=== PATIENT | female | born 1980 | race American Indian/Alaskan Native ===

== ENCOUNTER → 2018-04-15 11:23 | Outpatient (CLI) | payer MEDICAID, OTHER, SELFPAY ==
[2018-04-15 12:43] LABS: C-Reactive Protein Quant < 0.5 mg/dL (<1.0); Rheumatoid Factor < 8.6 IU/mL (<12.0)
[2018-04-16 11:49] LABS: CCP Antibody (IgG) < 16 Units (< 20)
[2018-04-17 20:48] LABS: ANA Pattern Speckled; ANA Screen, IFA Positive (Negative); ANA Titer 1:40 titer (<1:40)
== END ==
PROVIDERS: Family Provider Family Medicine; PCP Family Medicine; Visit Provider Family Medicine
DX: M13.0 Polyarthritis, unspecified (principal)
CPT/HCPCS: 36415; 83516; 86038; 86140; 86430

== ENCOUNTER → 2018-04-21 08:18 | Outpatient (CLI) | payer MEDICAID, OTHER, SELFPAY ==
--- NOTE | 2018-04-21 | DI.US.S_ITS ---
PROCEDURE: US ABDOMEN COMPLETE INDICATIONS: RUQ PAIN TECHNIQUE: Real-time scanning was performed of the abdominal and retroperitoneal organs, with image documentation. COMPARISON: [facility], US, PELVIC COMPLETE, 01/14/2017, 8:43. FINDINGS: Liver: Liver is normal in size and homogeneous in echotexture. Gallbladder: No gallstones identified. Normal gallbladder wall. No pericholecystic fluid. Negative sonographic King sign. Biliary ducts: Intrahepatic bile ducts are non-dilated. Extrahepatic bile duct caliber measures 5.0 mm. Normal is 6-7 mm or less in diameter, or 10 mm or less post-cholecystectomy. Pancreas: Visualized portions of the pancreas are sonographically normal. Spleen: Spleen is normal in size and homogeneous in echotexture. Kidneys: Kidneys are normal in size and echotexture. Right kidney measures 11.4 cm long; left kidney measures 12.2 cm long. 2 nonobstructing superior to mid right renal stone seen the largest measuring 8 mm.. No solid masses. Aorta: Visualized aorta is normal in caliber at less than 3 cm. Iliacs: Proximal common iliac arteries are normal in caliber at less than 2.5 cm. IVC: Intrahepatic inferior vena cava is patent. Miscellaneous: No free abdominal fluid. IMPRESSION: 1. 2 subcentimeter nonobstructing right renal stones otherwise no source for right upper quadrant pain identified. Dictated by: Getachew Lofton [facility] Interpreted: Gibson Garcia MD on 04/21/2018 at 10:03 Approved by: Gibson Garcia M.D. on 04/21/2018 at 11:17
== END ==
PROVIDERS: PCP Family Medicine; Visit Provider Family Medicine
DX: R10.11 Right upper quadrant pain (principal); N20.0 Calculus of kidney
CPT/HCPCS: 76700

== ENCOUNTER → 2018-05-20 10:06 | Outpatient (CLI) | payer MEDICAID, OTHER, SELFPAY ==
--- NOTE | 2018-05-20 | DI.CT.S_ITS ---
PROCEDURE: CT ABDOMEN PELVIS WO CON INDICATIONS: Bilateral upper flank pain TECHNIQUE: Noncontrast 5 mm thick sections acquired from the diaphragms to the symphysis. 5 mm thick coronal and sagittal reformats were then performed. For radiation dose reduction, the following was used: automated exposure control, adjustment of mA and/or kV according to patient size. COMPARISON: [facility], , US ABDOMEN COMPLETE, 04/21/2018, 8:46. FINDINGS: Image quality: Excellent. Lung bases: Lung bases are clear. Heart size is normal. Urinary system: Both kidneys are normal in size. Multiple right renal stones are noted ranging in size from 1-6 mm. 2 mm nonobstructing stone within the midpole of the left kidney. No hydronephrosis or perinephric fat stranding. Both ureters appear non-dilated throughout their expected courses. Bladder wall thickness is normal; no calcified bladder stones. Other solid organs: Liver is normal in size. Gallbladder is within normal limits. Pancreas is normal in contours. Spleen is normal in size. No adrenal nodules. Peritoneum and bowel: Unenhanced bowel loops demonstrate normal wall thickness and caliber. A few scattered colonic diverticuli are noted without evidence of diverticulitis. No free fluid or air. The appendix is normal. Nodes and vessels: No retroperitoneal or mesenteric adenopathy by size criteria. Aorta and inferior vena cava are normal in caliber. Abdominal wall: Small fat-containing periumbilical hernia is noted. Pelvis: No free pelvic fluid. No inguinal hernias or adenopathy. Intrauterine device noted. Bones: No suspicious bony lesions. No vertebral body compression fractures. IMPRESSION: 1. Multiple bilateral nonobstructing renal stones. 2. No hydronephrosis. 3. Colonic diverticulosis without evidence of diverticulitis. 4. No free fluid or free air. 5. No dilated loops of bowel. Dictated by: Shonda Leger MD, PhD on 05/20/2018 at 15:05 Approved by: Shonda Leger MD, PhD on 05/20/2018 at 15:10
== END ==
PROVIDERS: Family Provider Family Medicine; PCP Family Medicine; Visit Provider Family Medicine
DX: R10.12 Left upper quadrant pain (principal); R10.11 Right upper quadrant pain; M54.6 Pain in thoracic spine; N20.0 Calculus of kidney; K42.9 Umbilical hernia without obstruction or gangrene; K57.90 Diverticulosis of intestine, part unspecified, without perforation or abscess without bleeding; Z97.5 Presence of (intrauterine) contraceptive device
CPT/HCPCS: 74176

== ENCOUNTER 2018-07-14 18:51 | Emergency (ER) | payer MEDICAID, OTHER, SELFPAY ==
[2018-07-14 18:55] VITALS: BP 142/87; PULSE 74; RESP 18; TEMP 36.5; O2SAT 98
--- NOTE | 2018-07-14 22:01 | DI.CT.S_ITS ---
PROCEDURE: CT HEAD/BRAIN WO CON INDICATIONS: worst headache TECHNIQUE: Noncontrast 4.5 mm thick angled axial sections acquired from the foramen magnum to the vertex, with coronal and sagittal reformats. For radiation dose reduction, the following was used: automated exposure control, adjustment of mA and/or kV according to patient size. COMPARISON: None. FINDINGS: Image quality: Limited by beam hardening artifact related to metallic ear piercings. CSF spaces: Basal cisterns are patent. No extra-axial fluid collections. Ventricles are normal in size and shape. Brain: No midline shift. No intracranial masses or hemorrhage. Sharp-white matter interface is normal. Skull and face: Calvarium and visualized facial bones are intact, without suspicious lesions. Sinuses: Visualized sinuses and mastoids are clear. IMPRESSION: No acute intracranial disease process within limitations related to beam hardening artifact. Dictated by: Shonda Leger MD, PhD on 07/15/2018 at 8:00 Approved by: Shonda Leger MD, PhD on 07/15/2018 at 8:02
[2018-07-14] MEDS: METOCLOPRAMIDE 10 MG/2 ML INJ IV (22:12)
[2018-07-14] MEDS: diphenhydrAMINE 50 MG/ML VIAL 25 MG IV (22:13)
[2018-07-14] MEDS: DEXAMETHASONE 10 MG/ML VIAL IV (22:14)
[2018-07-14] MEDS: KETOROLAC 60 MG/2 ML VIAL 10 MG IV (22:15)
[2018-07-14] MEDS: SODIUM CHLORIDE 0.9% 1,000 ML 1000 ML IV (22:16)
[2018-07-14 23:39] VITALS: BP 119/85; PULSE 70; RESP 16; TEMP 37.1; O2SAT 99
--- NOTE | 2018-07-15 02:55 | ED_ITS ---
HPI - Headache General Chief Complaint: Headache Stated Complaint: HEADACHE Time Seen by Provider: 07/14/18 20:41 Source: patient and family Mode of arrival: ambulatory Limitations: no limitations History of Present Illness HPI Narrative: 38-year-old femaleNonsmoker presents to the emergency department with gradually worsening headache for the past few days. She complains of left- sided headache which is worse with bright lights, loud noises and exertion. She has had nausea but no vomiting. She denies fever or chills. She has had no numbness, tingling or weakness. She denies neck pain or recent illness or injury. She admits to being under significant stress at home and is not sleeping much. MD Complaint: headache and migraine Onset (ago): day(s) Onset description: gradual Location: left Severity: severe Quality: aching, throbbing and different than previous headaches Relieving factors: dark room Exacerbating factors: exertion, light and noise Associated symptoms: nausea Treatments prior to arrival: none Related Data Allergies Allergy/AdvReac Type Severity Reaction Status Date / Time Sulfa (Sulfonamide Allergy Unknown Verified 07/14/18 22:16 Antibiotics) [SULFA (SULFONAMIDE ANTIBIOTICS)] Review of Systems Constitutional Denies chills, Denies fever(s), Reports headache(s), Denies lethargy and Denies weakness Eyes Denies change in vision, Denies eye discharge, Denies irritation and Denies loss of vision ENT Ears, Nose, Mouth, and Throat: Denies change in voice, Reports headache(s), Denies neck pain and Denies sore throat Cardiovascular Denies chest pain, Denies irregular heart rhythm, Denies lightheadedness, Denies palpitations, Denies dyspnea, Denies dyspnea on exertion and Denies orthopnea Respiratory Denies cough, Denies dyspnea, Denies dyspnea on exertion and Denies wheezing Gastrointestinal Gastrointestinal: Denies abdominal pain, Denies change in bowel habits, Denies diarrhea, Denies nausea and Denies vomiting Genitourinary Denies hematuria, Denies flank pain, Denies urinary incontinence and Denies urinary urgency Musculoskeletal Denies neck pain Integumentary/Breasts Denies pruritus, Denies erythema, Denies rash and Denies wounds Neurologic Denies confusion, Reports headache(s), Denies loss of vision and Denies weakness Psychiatric Denies anxiety, Denies confusion, Denies depression, Denies homicidal ideation and Denies suicidal ideation Endocrine Denies palpitations Hematologic/Lymphatic Denies easy bruising Allergic/Immunologic Denies wheezing PFSH Family History Father Hypertension Social History Smoking Status: Never smoker Family History Father Hypertension Social History Smoking Status: Never smoker Exam Narrative Exam Narrative: GENERAL: 38-year-old female obviously uncomfortable, sitting in a dark room with her bishop pulled up, her eyes covered. HEAD: Atraumatic. Normocephalic. No temporal or scalp tenderness. EYES: Pupils equal round and reactive. Extraocular motions intact. No scleral icterus. No injection or drainage. ENT: Nose without bleeding, purulent drainage or septal hematoma. Throat without erythema, tonsillar hypertrophy or exudate. Uvula midline. Airway patent. NECK: Trachea midline. No JVD or lymphadenopathy. Supple, nontender, no meningeal signs. CARDIOVASCULAR: Regular rate and rhythm without murmurs, gallops, or rubs. RESPIRATORY: Clear to auscultation. Breath sounds equal bilaterally. No wheezes , rales, or rhonchi. GASTROINTESTINAL: Abdomen soft, non-tender, nondistended. No hepato-splenomegaly , or palpable masses. No guarding. EXTREMITIES: No clubbing, cyanosis, or edema. No joint tenderness, effusion, or edema noted. BACK: Nontender without deformity or crepitance. No flank tenderness. NEURO: AOx3. SKIN: No rash or erythema. NIH Stroke Scale 1a. LOC: Patient is alert and keenly responsive (0) 1b. LOC Questions: Patient answers both LOC questions accurately (0) 1c. LOC Commands: Patient performs both tasks correctly (0) 2. Best Gaze: Normal (0) 3. Visual: No visual loss (0) 4. Facial palsy: Normal symmetrical movements (0) 5. Motor arm: No drift (0) 6. Motor leg: No drift (0) 7. Limb ataxia: Absent (0) 8. Sensory: Normal (0) 9. Best language: No aphasia; normal (0) 10. Dysarthria: Normal (0) 11. Extinction and inattention: No abnormality (0) NIHSS: 0 Initial Vital Signs Initial Vital Signs: Vital Signs Temperature 97.7 F 07/14/18 18:55 Pulse Rate 74 07/14/18 18:55 Respiratory Rate 18 07/14/18 18:55 Blood Pressure 142/87 H 07/14/18 18:55 Pulse Oximetry 98 07/14/18 18:55 Course Orders Ordered: ED Orders 07/14/18 22:01 CT head/brain wo con Stat Discontinued Medications Dexamethasone (Decadron) 10 mg IV NOW ONE Stop: 07/14/18 21:59 Last Admin: 07/14/18 22:14 Dose: 10 mg Diphenhydramine HCl (Benadryl) 25 mg IV NOW ONE Stop: 07/14/18 21:59 Last Admin: 07/14/18 22:13 Dose: 25 mg Sodium Chloride (Normal Saline 0.9%) 1,000 mls @ 1,000 mls/hr IV BOLUS ONE Stop: 07/14/18 22:57 Last Infusion: 07/14/18 23:16 Dose: 0 mls/hr Admin: 07/14/18 22:16 Dose: 1,000 mls/hr Ketorolac Tromethamine (Toradol) 10 mg IV NOW ONE Stop: 07/14/18 21:59 Last Admin: 07/14/18 22:15 Dose: 10 mg Metoclopramide HCl (Reglan) 10 mg IV NOW ONE Stop: 07/14/18 21:59 Last Admin: 07/14/18 22:12 Dose: 10 mg Reevaluation(s) Reevaluation #1: The patient has near complete resolution of symptoms after above-stated therapies and is requesting discharge Vital Signs - 8 hr 07/14/18 23:39 Temperature 98.7 F Pulse Rate 70 Respiratory Rate 16 Blood Pressure 119/85 Pulse Oximetry 99 MDM - Headache Differential Diagnosis Differential diagnosis: Likely migraine, tension headache, subarachnoid hemorrhage, headache and meningitis Medical Records Attestation: I reviewed the patient's medical records. Imaging Data CT scan - head: Radiologist's impression: NAP MDM Narrative Medical decision making narrative: Multiple etiologies for patient's symptoms considered including: [Migraine versus meningitis versus subarachnoid hemorrhage versus tension headache versus other] Patient's symptoms improved or duration of stay with above-stated therapies. Findings and discharge diagnosis discussed with patient/family followed by verbalization of understanding Return precautions discussed with patient/family whom verbalize understanding. Discharge Plan Departure Patient Disposition: Home Clinical Impression: Migraine Discharge Date/Time: 07/14/18 23:38 Interventions: ED Discharge Assessment Last Done: 07/14/18 23:39 Instructions: DI for Migraine Activity Restrictions/Additional Instructions: *You have been diagnosed with [ acute migraine headache ] *What to do: continue to take medications as previously directed *Follow up with your primary care provider in 2-3 days, call for an appointment. Let them know you were seen in the Emergency Department and that we ask that you be seen in follow up *Return to ER if you should have any new, worsening or concerning symptoms
== END 2018-07-14 23:38 | disposition home or self-care (01) ==
PROVIDERS: Emergency Provider Emergency Medicine; Family Provider Family Medicine; PCP Family Medicine
DX: G43.909 Migraine, unspecified, not intractable, without status migrainosus (principal)
CPT/HCPCS: 36591; 70450; 96361; 96374; 96375; 99283; 99284; J1100; J1200; J1885; J2765

== ENCOUNTER 2018-10-22 20:08 | Emergency (ER) | payer OTHER, MEDICAID, SELFPAY ==
[2018-10-22 20:25] VITALS: BP 128/93; PULSE 90; RESP 18; TEMP 36.7; O2SAT 97; BMI 27.4
--- NOTE | 2018-10-22 20:34 | DI.CT.S_ITS ---
PROCEDURE: CT ABDOMEN PELVIS W CON INDICATIONS: drank hydrgen peroxide-gas in portal system? per poison cont TECHNIQUE: After the administration of intravenous contrast, 5 mm thick sections acquired from the diaphragm to the symphysis. 5 mm coronal and sagittal reformats were acquired. For radiation dose reduction, the following was used: automated exposure control, adjustment of mA and/or kV according to patient size. COMPARISON: None. FINDINGS: Image quality: Excellent. ABDOMEN: Lung bases: Lung bases are clear. Heart size is normal. Solid organs: Liver is normal in size and enhancement. Gallbladder is within normal limits. Biliary system is non dilated. Pancreas enhances normally. Spleen is normal in size and enhancement. No adrenal nodules. Kidneys demonstrate normal size and enhancement, without hydronephrosis. 2-3 mm bilateral nonobstructing renal calculi are seen. Peritoneum and bowel: Bowel loops demonstrate normal wall thickness and caliber. No free fluid or air. The appendix is visualized and is within normal limits. Nodes and vessels: No retroperitoneal or mesenteric adenopathy by size criteria. Aorta and inferior vena cava are normal in size. Miscellaneous: Small periumbilical hernia is seen containing fat only. PELVIS: Genitourinary: Bladder wall thickness is normal. Intrauterine device is noted in its normal central endometrial location. Miscellaneous: No inguinal hernias or adenopathy. Bones: No suspicious bony lesions. No vertebral body compression fractures. IMPRESSION: 1. No acute inflammatory process within the abdomen or pelvis. No abnormal bowel wall thickening. No free fluid or free air. 2. Bilateral nonobstructing renal calculi. No hydronephrosis. 3. Intrauterine device is in its normal location. Dictated by: Gibson Garcia M.D. on 10/22/2018 at 22:09 Approved by: Gibson Garcia M.D. on 10/22/2018 at 22:11
--- NOTE | 2018-10-22 20:36 | ED.OVERDOSE ---
HPI - Overdose General Chief Complaint: Toxicology Problem Stated Complaint: DRANK ALOT OF HYDROGEN PEROXIDE Time Seen by Provider: 10/22/18 20:22 History of Present Illness HPI Narrative: Patient is a very nice 38-year-old female presenting with possible ingestion of hydrogen peroxide. She has a special needs child at home she has some hydrogen peroxide out from cleaning of the wound. She drinks about 500 mL of water from her water bottle and then started feeling her throat is burning instantly vomited. After interrogation of her children she found that 1 of them did pour some hydrogen peroxide 3% into her water bottle. It is unclear how much was port in. Poison Control was contacted prior to arrival who recommended she come to the ED for evaluation. He has no complaints at this time. MD complaint: accidental overdose Onset (ago): minute(s) Related Data Allergies Allergy/AdvReac Type Severity Reaction Status Date / Time Sulfa (Sulfonamide Allergy Unknown Verified 07/14/18 22:16 Antibiotics) [SULFA (SULFONAMIDE ANTIBIOTICS)] Review of Systems Review of Systems GENERAL: Denies chills, fatigue, malaise, fever, sweats, travel HEENT: Denies sinus pain, ear pain, sore throat, difficulty swallowing, neck pain RESPIRATORY: Denies dyspnea, cough, wheezing, hemoptysis, sputum. CARDIOVASCULAR: Denies chest pain, palpitations, orthopnea, edema GASTROINTESTINAL: Denies nausea, vomiting, abdominal pain, diarrhea, constipation, melena. : Denies dysuria, frequency, incontinence, hematuria, urinary retention, flank pain. MUSCULOSKELETAL: Denies weakness, joint pain, or bony pain SKIN: No rash, no erythema, no pruritus NEUROLOGIC: Denies weakness, dizziness, headache, numbness, change in speech, confusion PSYCHIATRIC: No concerning psychosocial issues. 12 point review of systems is negative except for those stated above and HPI PFSH Medical History Patient denies significant medical history (Acute) Family History Father Hypertension Social History Smoking Status: Never smoker Family History Father Hypertension Social History Smoking Status: Never smoker Exam Initial Vital Signs Initial Vital Signs: Vital Signs Temperature 98.1 F 10/22/18 20:25 Pulse Rate 90 10/22/18 20:25 Respiratory Rate 18 10/22/18 20:25 Blood Pressure 128/93 H 10/22/18 20:25 Pulse Oximetry 97 10/22/18 20:25 GENERAL: Well-appearing, well-nourished and in no acute distress. HEENT: Head atraumatic,EOMI, pupils reactive, face symmetric, moist mucous membranes CARDIOVASCULAR: Regular rate and rhythm without murmurs, rubs or gallops. RESPIRATORY: Breath sounds equal bilaterally, no wheezes rales or rhonchi. ABDOMEN: Soft, nontender. Normoactive bowel sounds all 4 quadrants. No guarding or rebound. EXTREMITIES: Normal range of motion, no clubbing or edema. Neurovascularly intact NEUROLOGICAL: Alert and oriented x4.Normal gait and speech. Cranial nerves II through XII grossly intact. SKIN: Warm, dry, no laceration, no petechiae, no rashes or lesions. Course Orders Ordered: ED Orders 10/22/18 20:34 CT abdomen pelvis w con Stat 10/22/18 20:35 Acetaminophen Stat Complete Blood Count AUTO DIFF Stat Comprehensive Metabolic Panel Stat Ethanol (ETOH) Stat Lipase Stat Salicylate Stat 10/22/18 20:40 Urine Drug Screen, Rapid Stat Discontinued Medications Sodium Chloride (Normal Saline 0.9%) 1,000 mls @ 1,000 mls/hr IV CONT TIAGO Last Infusion: 10/22/18 22:00 Dose: 1,000 mls/hr Admin: 10/22/18 21:00 Dose: 1,000 mls/hr Vital Signs - 8 hr 10/22/18 20:25 10/22/18 21:28 10/22/18 22:40 Temperature 98.1 F Pulse Rate 90 75 70 Respiratory Rate 18 15 18 Blood Pressure 128/93 H 130/80 Blood Pressure [Right Arm] 134/85 Pulse Oximetry 97 97 97 MDM - Overdose Lab Data Attestation: I reviewed the patient's lab results. Result diagrams: 10/22/18 20:35 10/22/18 20:35 Lab Results 10/22/18 10/22/18 10/22/18 Range/Units 20:35 20:35 20:40 WBC 6.8 (4.5-11.0) X10^3/uL RBC 4.85 (4.0-5.2) X10^6/uL Hgb 14.1 (12.0-16.0) g/dL Hct 43.4 (36-46) % MCV 89.6 (80-100) fL MCH 29.1 (26-34) PG MCHC 32.5 (30-36) % RDW 13.1 (11.6-14.8) % Plt Count 195 (150-400) X10^3/uL Neut % (Auto) 47.7 L (50-75) % Lymph % (Auto) 42.4 H (25-40) % Carlton % (Auto) 5.4 (3-14) % Eos % (Auto) 3.9 (2-4) % Baso % (Auto) 0.6 (0-2) % Neut # (Auto) 3300 (6370-6769) /uL Lymph # (Auto) 2900 (4003-8011) /uL Carlton # (Auto) 400 (0-900) /uL Eos # (Auto) 300 (0-450) /uL Baso # (Auto) 0 (0-100) /uL Sodium 139 (137-145) mmol/L Potassium 3.6 (3.4-5.1) mmol/L Chloride 104 (98-107) mmol/L Carbon Dioxide 23 (22-32) mmol/L BUN 16 (7-17) mg/dL Creatinine 0.80 (0.52-1.04) mg/dL Estimated GFR > 60.0 (>60) mL/min BUN/Creatinine Ratio 20.0 (6-22) Glucose 92 (70-100) mg/dL Calcium 9.3 (8.4-10.2) mg/dL Total Bilirubin 0.2 (0.2-1.3) mg/dL AST 16 (14-36) IU/L ALT 18 (9-52) IU/L Alkaline Phosphatase 38 (38-126) U/L Total Protein 8.1 (6.3-8.2) g/dL Albumin 4.7 (3.5-5.0) g/dL Globulin 3.4 (1.7-4.1) g/dL Albumin/Globulin Ratio 1.4 (1.0-2.8) Lipase 154 (23-300) U/L Salicylates < 1.0 (<20) mg/dL Urine Opiates Screen Positive H (Negative) Ur Oxycodone Screen Negative (Negative) Urine Methadone Screen Negative (Negative) Acetaminophen < 10 L (10-30) ug/mL Ur Barbiturates Screen Negative (Negative) U Tricyclic Antidepress Negative (Negative) Ur Phencyclidine Scrn Negative (Negative) Ur Amphetamines Screen Negative (Negative) U Methamphetamines Scrn Negative (Negative) Ur MDMA Scrn (Ecstasy) Negative (Negative) U Benzodiazepines Scrn Negative (Negative) Urine Cocaine Screen Negative (Negative) U Marijuana (THC) Screen Positive H (Negative) Ethyl Alcohol < 10 mg/dL Point of Care Testing Test Results Negative Imaging Data CT scan - abdomen: Radiologist's impression: PROCEDURE: CT ABDOMEN PELVIS W CON INDICATIONS: drank hydrgen peroxide-gas in portal system? per poison cont TECHNIQUE: After the administration of intravenous contrast, 5 mm thick sections acquired from the diaphragm to the symphysis. 5 mm coronal and sagittal reformats were acquired. For radiation dose reduction, the following was used: automated exposure control, adjustment of mA and/or kV according to patient size. COMPARISON: None. FINDINGS: Image quality: Excellent. ABDOMEN: Lung bases: Lung bases are clear. Heart size is normal. Solid organs: Liver is normal in size and enhancement. Gallbladder is within normal limits. Biliary system is non dilated. Pancreas enhances normally. Spleen is normal in size and enhancement. No adrenal nodules. Kidneys demonstrate normal size and enhancement, without hydronephrosis. 2-3 mm bilateral nonobstructing renal calculi are seen. Peritoneum and bowel: Bowel loops demonstrate normal wall thickness and caliber. No free fluid or air. The appendix is visualized and is within normal limits. Nodes and vessels: No retroperitoneal or mesenteric adenopathy by size criteria. Aorta and inferior vena cava are normal in size. Miscellaneous: Small periumbilical hernia is seen containing fat only. PELVIS: Genitourinary: Bladder wall thickness is normal. Intrauterine device is noted in its normal central endometrial location. Miscellaneous: No inguinal hernias or adenopathy. Bones: No suspicious bony lesions. No vertebral body compression fractures. IMPRESSION: 1. No acute inflammatory process within the abdomen or pelvis. No abnormal bowel wall thickening. No free fluid or free air. 2. Bilateral nonobstructing renal calculi. No hydronephrosis. 3. Intrauterine device is in its normal location. Dictated by: Gibson Garcia M.D. on 10/22/2018 at 22:09 [facility] Narrative Medical decision making narrative: Patient overall feeling better. I re-contacted poison Control no abnormality in the CT patient can go. Discharge Plan Departure Patient Disposition: Home Clinical Impression: Accidental overdose Qualifiers: Encounter type: initial encounter Qualified Code(s): T50.901A - Poisoning by unspecified drugs, medicaments and biological substances, accidental (unintentional), initial encounter Discharge Date/Time: 10/22/18 22:41 Interventions: ED Discharge Assessment Last Done: 10/22/18 22:40 Instructions: DI for Drug Overdose in Adults Activity Restrictions/Additional Instructions: *You have been diagnosed with accidental overdose *What to do: Poison Control has been contacted. CT blood work reassuring keep. all medications and cleaning supplies a [facility] from [facility] *Continue to take medications as directed *Follow up with your primary care provider in 2-3 days *Return to ER if you should have present since vomiting increased pain or any new, worsening or concerning symptoms Referrals: Tavon Wellington MD [Primary Care Provider] -
[2018-10-22 20:52] LABS: Add Manual Diff / Slide Review NO; Basophils Absolute Auto 0 /uL (0-100); Basophils Percent Auto 0.6 % (0-2); Eosinophils Absolute Auto 300 /uL (0-450); Eosinophils Percent Auto 3.9 % (2-4); Hematocrit 43.4 % (36-46); Hemoglobin 14.1 g/dL (12.0-16.0); Lymphocytes Absolute Auto 2900 /uL (1100-4500); Lymphocytes Percent Auto 42.4 % (25-40); Mean Corpuscular HGB Conc 32.5 % (30-36); Mean Corpuscular Hemoglobin 29.1 PG (26-34); Mean Corpuscular Volume 89.6 fL (80-100); Monocytes Absolute Auto 400 /uL (0-900); Monocytes Percent Auto 5.4 % (3-14); Neutrophils Absolute Auto 3300 /uL (1500-7000); Neutrophils Percent Auto 47.7 % (50-75); Platelet Count 195 X10^3/uL (150-400); Red Blood Cell Count 4.85 X10^6/uL (4.0-5.2); Red Cell Distribution Width 13.1 % (11.6-14.8); White Blood Cell Count 6.8 X10^3/uL (4.5-11.0)
[2018-10-22] MEDS: SODIUM CHLORIDE 0.9% 1,000 ML 1000 ML IV (21:00)
[2018-10-22 21:07] LABS: Acetaminophen < 10 ug/mL (10-30); Alanine Aminotransferase 18 IU/L (9-52); Albumin 4.7 g/dL (3.5-5.0); Albumin Globulin Ratio 1.4 (1.0-2.8); Alkaline Phosphatase 38 U/L (38-126); Aspartate Aminotransferase 16 IU/L (14-36); Bilirubin Total 0.2 mg/dL (0.2-1.3); Blood Urea Nitrogen 16 mg/dL (7-17); Calcium 9.3 mg/dL (8.4-10.2); Carbon Dioxide 23 mmol/L (22-32); Chloride 104 mmol/L (98-107); Estimated Glomerular Filt Rate > 60.0 mL/min (>60); Ethanol (ETOH) < 10 mg/dL; Globulin 3.4 g/dL (1.7-4.1); Glucose 92 mg/dL (70-100); HEMOLYSIS < 15 (0-50); Lipase 154 U/L (23-300); Potassium 3.6 mmol/L (3.4-5.1); Salicylate < 1.0 mg/dL (<20); Sodium 139 mmol/L (137-145); Total Protein 8.1 g/dL (6.3-8.2)
[2018-10-22 21:13] LABS: Urine Amphetamines Negative (Negative); Urine Barbiturates Negative (Negative); Urine Benzodiazepines Negative (Negative); Urine Cocaine Negative (Negative); Urine MDMA Negative (Negative); Urine Methadone Negative (Negative); Urine Methamphetamines Negative (Negative); Urine Morphine/Opi cutoff 2000 Positive (Negative); Urine Oxycodone Negative (Negative); Urine Phencyclidine Negative (Negative); Urine Tetrahydrocannabinol Positive (Negative); Urine Tricyclic Antidepressant Negative (Negative)
[2018-10-22 21:28] VITALS: BP 134/85; PULSE 75; RESP 15; O2SAT 97
--- NOTE | 2018-10-22 21:30 | PC.NURSE ---
Pt arrived back from CT, stating she sneezed and throat has itch post IV contrast. PT states only known allergy is to Sulfa. PT denies throat tightness or sob and is speaking in full sentences. Provider aware, offered medication to pt and pt declined stating its getting better.
[2018-10-22 22:40] VITALS: BP 130/80; PULSE 70; RESP 18; O2SAT 97
--- NOTE | 2018-10-22 23:03 | PC.NURSE ---
PT states may have accidentally drank hydrogen peroxide, pt thinks her special needs child may have put hydrogen peroxide 3% in her water bottle, pt drank approx 500ml of water then throat started to burn and she vomited. Pt called poison control and was told to come to ER for eval. Pt denies n/v, difficulty breathing, pain or any complaints upon arrival. Pt appears in no acute distress.
== END 2018-10-22 22:41 | disposition home or self-care (01) ==
PROVIDERS: Emergency Provider Emergency Medicine; Family Provider Family Medicine; PCP Family Medicine
DX: T50.901A Poisoning by unspecified drugs, medicaments and biological substances, accidental (unintentional), initial encounter (principal)
CPT/HCPCS: 36591; 74177; 80053; 80305; 80320; 80329; 81025; 83690; 85025; 96360; 99283; 99284; G0480; Q9967

== ENCOUNTER → 2019-06-14 15:13 | Outpatient (CLI) | payer OTHER, SELFPAY | PROVIDERS: Family Provider Family Medicine; PCP Family Medicine; Visit Provider Physician Assistant | DX: R39.15 Urgency of urination (principal) | CPT/HCPCS: 87086 ==

== ENCOUNTER → 2019-07-08 12:57 | Outpatient (CLI) | payer OTHER, SELFPAY ==
--- NOTE | 2019-07-08 | DI.MG.S_ITS ---
BILATERAL DIGITAL DIAGNOSTIC MAMMOGRAM 3D/2D: 07/08/2019 CLINICAL: Baseline exam. Bilateral breast pain. Baseline exam. No prior exams were available for comparison. The tissue of both breasts is extremely dense, which lowers the sensitivity of mammography. No significant masses, calcifications, or other findings are seen in either breast. No significant finding in the region of breast pain in the upper outer breasts bilaterally. IMPRESSION: INCOMPLETE: NEEDS ADDITIONAL IMAGING EVALUATION No significant masses, calcifications, or other findings are seen in either breast. Ultrasound of the upper outer breasts is recommended. This exam was interpreted at Station ID: [id number]. NOTE: For mammograms, a report in lay terms will be sent to the patient. Approximately 15% of breast malignancies will not be visualized mammographically. In the management of a palpable breast mass, a negative mammogram must not discourage biopsy of a clinically suspicious lesion. Electronically Signed By: Adolfo Mathews M.D. slc/:07/08/2019 14:53:36 ACR BI-RADS Category 0: Incomplete [id number]
--- NOTE | 2019-07-08 | DI.US.S_ITS ---
LIMITED ULTRASOUND OF RIGHT BREAST AND AXILLA: 07/08/2019 CLINICAL: Right breast pain upper outer quadrant. Comparison is made to exam dated: 07/08/2019 [facility]. Real-time ultrasound of the right breast 9-12 o'clock, and axilla regions was performed. Sharp scale images of the real-time examination were reviewed. No significant abnormalities were seen sonographically in the right breast in the region of focal pain or the right axilla. IMPRESSION: NEGATIVE There is no sonographic evidence of malignancy. Return to annual mammogram screening schedule is recommended. This exam was interpreted at Station ID: [id number]. Electronically Signed By: Adolfo Mathews M.D. slc/:07/08/2019 16:35:26 letter sent: Normal Exam Ultrasound BI-RADS: 1 Negative
--- NOTE | 2019-07-08 | DI.US.S_ITS ---
LIMITED ULTRASOUND OF LEFT BREAST AND AXILLA: 07/08/2019 CLINICAL: Left breast pain upper outer quadrant with possible cysts seen on mammogram. Comparison is made to exam dated: 07/08/2019 [facility]. Real-time ultrasound of the left breast 12-3 o'clock, and axilla regions was performed. Sharp scale images of the real-time examination were reviewed. No significant abnormality in the upper outer left breast in the region of pain. There is a benign 0.5 cm x 0.7 cm x 0.3 cm oval cyst in the left breast at 12 o'clock middle depth 6 cm from the nipple. This oval cyst is anechoic with a well-defined boundary. Color flow imaging demonstrates that there is no vascularity present. There also is a benign 0.4 cm x 0.2 cm x 0.6 cm oval cyst in the left breast at 1 o'clock middle depth 6 cm from the nipple. This oval cyst is anechoic with a well-defined boundary. Color flow imaging demonstrates that there is no vascularity present. No significant abnormalities were seen sonographically in the left axilla. IMPRESSION: BENIGN There is no sonographic evidence of malignancy. No significant abnormality in the upper outer left breast in the region of pain. Simple subcentimer cysts in the left breast are benign. Return to annual mammogram screening schedule is recommended. This exam was interpreted at Station ID: [id number]. Electronically Signed By: Adolfo Mathews M.D. [facility]/:07/08/2019 16:42:28 letter sent: Normal Exam Ultrasound BI-RADS: 2 Benign
== END ==
PROVIDERS: Family Provider Family Medicine; PCP Family Medicine; Visit Provider Family Medicine
DX: R92.8 Other abnormal and inconclusive findings on diagnostic imaging of breast (principal); N64.4 Mastodynia; N60.02 Solitary cyst of left breast
CPT/HCPCS: 76642; 77066; G0279

== ENCOUNTER 2022-03-08 21:49 | Emergency (ER) | payer OTHER, SELFPAY ==
[2022-03-08] VITALS (20 sets, daily range): BP systolic 79–90; BP diastolic 45–54; PULSE 61–74; RESP 16–27; TEMP 36.3; O2SAT 96–99; BMI 28.8
--- NOTE | 2022-03-08 22:01 | DI.RAD.S_ITS ---
PROCEDURE: XR CHEST 1V INDICATIONS: chest pain TECHNIQUE: One view of the chest was acquired. COMPARISON: None. FINDINGS: Surgical changes and devices: None. Lungs and pleura: Lungs are clear. No pleural effusions or pneumothorax. Mediastinum: Mediastinal contours appear normal. Heart size is normal. Bones and chest wall: No suspicious bony lesions. Overlying soft tissues appear unremarkable. IMPRESSION: 1. No acute cardiopulmonary disease. Dictated by: Harpreet Torres M.D. on 03/08/2022 at 23:18 Approved by: Harpreet Torres M.D. on 03/08/2022 at 23:19
[2022-03-08 22:35] LABS: Add Manual Diff / Slide Review NO; Basophils Absolute Auto 0 /uL (0-100); Basophils Percent Auto 0.4 % (0-2); Eosinophils Absolute Auto 200 /uL (0-450); Eosinophils Percent Auto 2.4 % (2-4); Hematocrit 35.9 % (36-46); Hemoglobin 12.5 g/dL (12.0-16.0); Lymphocytes Absolute Auto 3300 /uL (1100-4500); Lymphocytes Percent Auto 48.9 % (25-40); Mean Corpuscular HGB Conc 34.7 % (30-36); Mean Corpuscular Hemoglobin 30.2 PG (26-34); Mean Corpuscular Volume 86.9 fL (80-100); Monocytes Absolute Auto 400 /uL (0-900); Monocytes Percent Auto 5.6 % (3-14); Neutrophils Absolute Auto 2900 /uL (1500-7000); Neutrophils Percent Auto 42.7 % (50-75); Platelet Count 246 X10^3/uL (150-400); Red Blood Cell Count 4.13 X10^6/uL (4.0-5.2); Red Cell Distribution Width 13.2 % (11.6-14.8); White Blood Cell Count 6.9 X10^3/uL (4.5-11.0)
[2022-03-08] MEDS: SODIUM CHLORIDE 0.9% 1,000 ML 1000 ML IV ×2 (22:35→23:06)
[2022-03-08 22:40] LABS: Alanine Aminotransferase 14 IU/L (<35); Albumin 3.8 g/dL (3.5-5.0); Albumin Globulin Ratio 1.4 (1.0-2.8); Alkaline Phosphatase 30 U/L (38-126); Aspartate Aminotransferase 17 IU/L (14-36); BUN Creatinine Ratio 23.8 (6-22); Blood Urea Nitrogen 25 mg/dL (7-17); Calcium 8.5 mg/dL (8.4-10.2); Carbon Dioxide 25 mmol/L (22-32); Chloride 102 mmol/L (98-107); Creatine Kinase 66 U/L (30-135); Estimated Glomerular Filt Rate > 60 mL/min (>60); Globulin 2.8 g/dL (1.7-4.1); Glucose 125 mg/dL (70-100); HEMOLYSIS < 15 (0-50); Lipase 184 U/L (23-300); Magnesium 1.9 mg/dL (1.6-2.3); Potassium 3.6 mmol/L (3.4-5.1); Sodium 135 mmol/L (137-145); Total Protein 6.6 g/dL (6.3-8.2)
--- NOTE | 2022-03-08 22:46 | ED_ITS ---
HPI - Syncope General Chief Complaint: Syncope Stated Complaint: Fainted /head injury Time Seen by Provider: 03/08/22 22:28 Source: patient and family Mode of arrival: Wheelchair Limitations: no limitations History of Present Illness HPI narrative: Patient is a 41-year-old female who has a history of high blood pressure intermittently takes combo lisinopril and hydrochlorothiazide passed out today. She states that she started changing her diet and started going to the gym more regularly especially this week. Today she to sleep got up in her heard her crash in the kitchen. She actually has off small abrasion on the right side of her head. He denies numbness tingling or weakness. She said immediately after the event she got very hot and sweaty. Blood pressure is noted to be quite low in the 80s currently. She denies any fever or chills. He has no neck pain no nausea no vomiting. Related Data Allergies Allergy/AdvReac Type Severity Reaction Status Date / Time Sulfa (Sulfonamide Allergy Unknown Verified 06/14/19 15:04 Antibiotics) [SULFA (SULFONAMIDE ANTIBIOTICS)] Review of Systems Review of Systems Narrative: GENERAL: Denies chills, fatigue, malaise, fever, sweats, travel HEENT: Denies sinus pain, ear pain, sore throat, difficulty swallowing, neck pain RESPIRATORY: Denies dyspnea, cough, wheezing, hemoptysis, sputum. CARDIOVASCULAR: Denies chest pain, palpitations, orthopnea, edema GASTROINTESTINAL: Denies nausea, vomiting, abdominal pain, diarrhea, constipation, melena. : Denies dysuria, frequency, incontinence, hematuria, urinary retention, flank pain. MUSCULOSKELETAL: Denies weakness, joint pain, or bony pain SKIN: No rash, no erythema, no pruritus NEUROLOGIC: Syncope PSYCHIATRIC: No concerning psychosocial issues. 12 point review of systems is negative except for those stated above and HPI Patient History Medical History (Updated 03/09/22 @ 04:50 by Mandy Dhillon DO) Patient denies significant medical history Family History Father Hypertension Social History Smoking Status: Never smoker Smoking Status: Never smoker alcohol intake frequency: 0-2 drinks per day Substance Use Type: marijuana Exam Initial Vital Signs Initial Vital Signs: Vital Signs Temperature 97.4 F L 03/08/22 21:55 Pulse Rate 61 03/08/22 21:55 Respiratory Rate 17 03/08/22 21:55 Blood Pressure 82/45 L 03/08/22 21:55 Pulse Oximetry 98 03/08/22 21:55 Oxygen Delivery Method 03/08/22 21:55 GENERAL: Alert pleasant 41-year-old female HEENT: Head abrasion on right forehead NECK supple no vertebral tenderness CARDIOVASCULAR: Regular rate and rhythm without murmurs, rubs or gallops. RESPIRATORY: Breath sounds equal bilaterally, no wheezes rales or rhonchi. ABDOMEN: Soft, nontender. Normoactive bowel sounds all 4 quadrants. No guarding or rebound. EXTREMITIES: Normal range of motion, no clubbing or edema. Neurovascularly intact NEUROLOGICAL: Alert and oriented x4.Normal gait and speech. Cranial nerves II through XII grossly intact. Weed Control Inspector strength equal bilateral SKIN: Warm, dry, no laceration, no petechiae, no rashes or lesions. Course Orders Ordered: ED Orders 03/08/22 22:01 XR chest 1V Stat EKG-12 Lead Stat 03/08/22 22:11 Complete Blood Count AUTO DIFF Stat Comprehensive Metabolic Panel Stat D Dimer Stat Lactate (Lactic Acid) Stat Lipase Stat Magnesium Stat Procalcitonin Stat Troponin & CK Cardiac Panel Stat 03/09/22 00:58 CT angio chest abdomen pelvis Stat CT head/brain wo con Stat Sodium Chloride (Normal Saline 0.9%) 1,000 mls @ 250 mls/hr IV CONT TIAGO Last Admin: 03/09/22 01:01 Dose: 250 mls/hr Documented By: LEXII Discontinued Medications Sodium Chloride (Normal Saline 0.9%) 1,000 mls @ 1,000 mls/hr IV BOLUS ONE Stop: 03/08/22 23:27 Last Infusion: 03/08/22 23:03 Dose: 0 mls/hr Documented By: Admin: 03/08/22 22:35 Dose: 1,000 mls/hr Documented By: FAWN Sodium Chloride (Normal Saline 0.9%) 1,000 mls @ 1,000 mls/hr IV BOLUS ONE Stop: 03/09/22 00:02 Last Infusion: 03/08/22 23:38 Dose: 0 mls/hr Documented By: Admin: 03/08/22 23:06 Dose: 1,000 mls/hr Documented By: FAWN Sodium Chloride (Normal Saline 0.9%) 1,000 mls @ 1,000 mls/hr IV BOLUS ONE Stop: 03/09/22 01:56 Last Infusion: 03/09/22 01:04 Dose: 0 mls/hr Documented By: Admin: 03/09/22 01:01 Dose: 1,000 mls/hr Documented By: LEXII Vital Signs Vital signs: Vital Signs - 8 hr 03/08/22 21:55 03/08/22 22:15 03/08/22 22:15 Temperature 97.4 F L Pulse Rate 61 62 Respiratory Rate 17 Blood Pressure 82/45 L 81/53 L Pulse Oximetry 98 96 Oxygen Delivery Method Room Air 03/08/22 22:30 03/08/22 22:30 03/08/22 22:37 Temperature Pulse Rate 61 Respiratory Rate 17 Blood Pressure 80/49 L 84/50 L Pulse Oximetry 97 Oxygen Delivery Method 03/08/22 22:37 03/08/22 22:40 03/08/22 22:40 Temperature Pulse Rate 66 68 Respiratory Rate 27 H 22 Blood Pressure 79/53 L Pulse Oximetry 96 98 Oxygen Delivery Method 03/08/22 22:45 03/08/22 22:45 03/08/22 22:50 Temperature Pulse Rate 63 Respiratory Rate 20 Blood Pressure 86/52 L 89/51 L Pulse Oximetry 97 Oxygen Delivery Method 03/08/22 22:50 03/08/22 22:55 03/08/22 22:55 Temperature Pulse Rate 65 65 Respiratory Rate 16 17 Blood Pressure 89/52 L Pulse Oximetry 98 98 Oxygen Delivery Method 03/08/22 23:00 03/08/22 23:00 03/08/22 23:05 Temperature Pulse Rate 68 Respiratory Rate 18 Blood Pressure 90/50 L 86/52 L Pulse Oximetry 98 Oxygen Delivery Method 03/08/22 23:05 03/08/22 23:10 03/08/22 23:10 Temperature Pulse Rate 69 68 Respiratory Rate 23 17 Blood Pressure 87/50 L Pulse Oximetry 98 97 Oxygen Delivery Method 03/08/22 23:15 03/08/22 23:15 03/08/22 23:20 Temperature Pulse Rate 70 Respiratory Rate 16 Blood Pressure 82/45 L 81/50 L Pulse Oximetry 98 Oxygen Delivery Method 03/08/22 23:20 03/08/22 23:25 03/08/22 23:25 Temperature Pulse Rate 69 70 Respiratory Rate 17 17 Blood Pressure 84/53 L Pulse Oximetry 98 98 Oxygen Delivery Method 03/08/22 23:30 03/08/22 23:30 03/08/22 23:35 Temperature Pulse Rate 71 Respiratory Rate 16 Blood Pressure 84/53 L 84/54 L Pulse Oximetry 98 Oxygen Delivery Method 03/08/22 23:35 03/08/22 23:40 03/08/22 23:40 Temperature Pulse Rate 70 72 Respiratory Rate 16 17 Blood Pressure 90/52 L Pulse Oximetry 98 99 Oxygen Delivery Method 03/08/22 23:45 03/08/22 23:45 03/08/22 23:50 Temperature Pulse Rate 73 Respiratory Rate 17 Blood Pressure 87/50 L 87/52 L Pulse Oximetry 97 Oxygen Delivery Method 03/08/22 23:50 03/08/22 23:55 03/08/22 23:55 Temperature Pulse Rate 74 71 Respiratory Rate 17 17 Blood Pressure 85/51 L Pulse Oximetry 99 97 Oxygen Delivery Method 03/09/22 00:00 03/09/22 00:00 03/09/22 00:05 Temperature Pulse Rate 70 72 Respiratory Rate 17 15 Blood Pressure 88/52 L Pulse Oximetry 98 95 Oxygen Delivery Method 03/09/22 00:05 03/09/22 00:10 03/09/22 00:10 Temperature Pulse Rate 71 Respiratory Rate 16 Blood Pressure 87/52 L 86/52 L Pulse Oximetry 95 Oxygen Delivery Method 03/09/22 00:15 03/09/22 00:15 03/09/22 00:20 Temperature Pulse Rate 71 Respiratory Rate 16 Blood Pressure 86/53 L 87/50 L Pulse Oximetry 96 Oxygen Delivery Method 03/09/22 00:20 03/09/22 00:25 03/09/22 00:25 Temperature Pulse Rate 72 71 Respiratory Rate 16 16 Blood Pressure 90/54 L Pulse Oximetry 95 95 Oxygen Delivery Method 03/09/22 00:30 03/09/22 00:30 03/09/22 00:35 Temperature Pulse Rate 72 Respiratory Rate 16 Blood Pressure 85/53 L 85/53 L Pulse Oximetry 97 Oxygen Delivery Method 03/09/22 00:35 03/09/22 00:40 03/09/22 00:40 Temperature Pulse Rate 71 68 Respiratory Rate 15 15 Blood Pressure 86/53 L Pulse Oximetry 96 97 Oxygen Delivery Method 03/09/22 00:45 03/09/22 00:45 03/09/22 00:46 Temperature Pulse Rate 75 Respiratory Rate 20 Blood Pressure 93/53 L 94/55 L Pulse Oximetry 97 Oxygen Delivery Method 03/09/22 00:46 03/09/22 00:50 03/09/22 00:50 Temperature Pulse Rate 79 79 Respiratory Rate 21 21 Blood Pressure 89/51 L Pulse Oximetry 97 Oxygen Delivery Method 03/09/22 00:55 03/09/22 00:55 03/09/22 01:00 Temperature Pulse Rate 69 Respiratory Rate 15 Blood Pressure 81/43 L 83/44 L Pulse Oximetry 96 Oxygen Delivery Method 03/09/22 01:00 03/09/22 01:05 03/09/22 01:05 Temperature Pulse Rate 70 66 Respiratory Rate 16 16 Blood Pressure 86/47 L Pulse Oximetry 95 97 Oxygen Delivery Method 03/09/22 01:10 03/09/22 01:10 03/09/22 01:32 Temperature Pulse Rate 71 70 Respiratory Rate 16 Blood Pressure 83/49 L Pulse Oximetry 98 97 Oxygen Delivery Method 03/09/22 01:48 03/09/22 01:48 03/09/22 01:57 Temperature Pulse Rate 69 Respiratory Rate 20 Blood Pressure 85/49 L 86/50 L Pulse Oximetry 97 Oxygen Delivery Method 03/09/22 01:57 03/09/22 02:00 03/09/22 02:00 Temperature Pulse Rate 65 71 Respiratory Rate 15 22 Blood Pressure 91/46 L Pulse Oximetry 96 96 Oxygen Delivery Method 03/09/22 02:05 03/09/22 02:05 03/09/22 02:10 Temperature Pulse Rate 65 Respiratory Rate 18 Blood Pressure 86/52 L 86/49 L Pulse Oximetry 97 Oxygen Delivery Method 03/09/22 02:10 03/09/22 02:15 03/09/22 02:15 Temperature Pulse Rate 65 65 Respiratory Rate 16 15 Blood Pressure 85/50 L Pulse Oximetry 96 96 Oxygen Delivery Method 03/09/22 02:20 03/09/22 02:20 03/09/22 03:04 Temperature Pulse Rate 65 Respiratory Rate 14 Blood Pressure 87/54 L 80/53 L Pulse Oximetry 97 Oxygen Delivery Method 03/09/22 03:04 03/09/22 03:05 03/09/22 03:05 Temperature Pulse Rate 67 67 Respiratory Rate 17 16 Blood Pressure 83/52 L Pulse Oximetry 98 98 Oxygen Delivery Method 03/09/22 03:06 03/09/22 03:06 03/09/22 03:07 Temperature Pulse Rate 66 67 Respiratory Rate 17 15 Blood Pressure 89/55 L Pulse Oximetry 99 98 Oxygen Delivery Method 03/09/22 03:07 03/09/22 03:10 03/09/22 03:10 Temperature Pulse Rate 60 Respiratory Rate 14 Blood Pressure 89/52 L 80/51 L Pulse Oximetry 97 Oxygen Delivery Method 03/09/22 03:15 03/09/22 03:15 03/09/22 03:20 Temperature Pulse Rate 61 Respiratory Rate 18 Blood Pressure 85/49 L 79/42 L Pulse Oximetry 97 Oxygen Delivery Method 03/09/22 03:20 03/09/22 03:25 03/09/22 03:25 Temperature Pulse Rate 60 60 Respiratory Rate 15 16 Blood Pressure 80/48 L Pulse Oximetry 96 96 Oxygen Delivery Method 03/09/22 03:30 03/09/22 03:30 03/09/22 03:35 Temperature Pulse Rate 59 L Respiratory Rate 14 Blood Pressure 81/51 L 79/51 L Pulse Oximetry 96 Oxygen Delivery Method 03/09/22 03:35 03/09/22 03:40 03/09/22 03:40 Temperature Pulse Rate 59 L 59 L Respiratory Rate 13 14 Blood Pressure 81/52 L Pulse Oximetry 95 95 Oxygen Delivery Method 03/09/22 03:45 03/09/22 03:45 03/09/22 03:50 Temperature Pulse Rate 58 L Respiratory Rate 13 Blood Pressure 84/51 L 86/53 L Pulse Oximetry 95 Oxygen Delivery Method 03/09/22 03:50 03/09/22 03:55 03/09/22 03:55 Temperature Pulse Rate 59 L 69 Respiratory Rate 14 21 Blood Pressure 86/55 L Pulse Oximetry 95 95 Oxygen Delivery Method 03/09/22 04:00 03/09/22 04:00 03/09/22 04:05 Temperature Pulse Rate 58 L 56 L Respiratory Rate 16 16 Blood Pressure 91/58 L Pulse Oximetry 93 95 Oxygen Delivery Method 03/09/22 04:05 03/09/22 04:10 03/09/22 04:10 Temperature Pulse Rate 54 L Respiratory Rate 15 Blood Pressure 94/57 L 92/60 Pulse Oximetry 95 Oxygen Delivery Method 03/09/22 04:15 03/09/22 04:15 03/09/22 04:20 Temperature Pulse Rate 58 L 55 L Respiratory Rate 18 14 Blood Pressure 98/62 Pulse Oximetry 96 96 Oxygen Delivery Method 03/09/22 04:20 03/09/22 04:25 03/09/22 04:25 Temperature Pulse Rate 55 L Respiratory Rate 15 Blood Pressure 91/57 L 94/61 Pulse Oximetry 96 Oxygen Delivery Method 03/09/22 04:30 03/09/22 04:30 03/09/22 04:35 Temperature Pulse Rate 58 L Respiratory Rate 16 Blood Pressure 99/68 104/75 Pulse Oximetry 96 Oxygen Delivery Method 03/09/22 04:35 03/09/22 04:40 03/09/22 04:40 Temperature Pulse Rate 60 54 L Respiratory Rate 20 16 Blood Pressure 102/77 Pulse Oximetry 96 97 Oxygen Delivery Method 03/09/22 04:45 03/09/22 04:45 03/09/22 04:50 Temperature Pulse Rate 56 L 57 L Respiratory Rate 13 26 H Blood Pressure 101/69 Pulse Oximetry 97 98 Oxygen Delivery Method 03/09/22 04:50 Temperature Pulse Rate Respiratory Rate Blood Pressure 101/73 Pulse Oximetry Oxygen Delivery Method MDM - Syncope Lab Data Result diagrams: 03/08/22 22:11 03/08/22 22:11 Labs: Lab Results 03/08/22 03/08/22 03/08/22 Range/Units 22:11 22:11 22:11 WBC 6.9 (4.5-11.0) X10^3/uL RBC 4.13 (4.0-5.2) X10^6/uL Hgb 12.5 (12.0-16.0) g/dL Hct 35.9 L (36-46) % MCV 86.9 (80-100) fL MCH 30.2 (26-34) PG MCHC 34.7 (30-36) % RDW 13.2 (11.6-14.8) % Plt Count 246 (150-400) X10^3/uL Neut % (Auto) 42.7 L (50-75) % Lymph % (Auto) 48.9 H (25-40) % [place] % (Auto) 5.6 (3-14) % Eos % (Auto) 2.4 (2-4) % Baso % (Auto) 0.4 (0-2) % Neut # (Auto) 2900 (6586-7078) /uL Lymph # (Auto) 3300 (6173-8026) /uL [place] # (Auto) 400 (0-900) /uL Eos # (Auto) 200 (0-450) /uL Baso # (Auto) 0 (0-100) /uL D-Dimer (<500) ng/ml Sodium 135 L (137-145) mmol/L Potassium 3.6 (3.4-5.1) mmol/L Chloride 102 (98-107) mmol/L Carbon Dioxide 25 (22-32) mmol/L BUN 25 H (7-17) mg/dL Creatinine 1.05 H (0.52-1.04) mg/dL Estimated GFR > 60 (>60) mL/min BUN/Creatinine Ratio 23.8 H (6-22) Glucose 125 H (70-100) mg/dL Lactate 1.0 (0.7-2.1) mmol/L Calcium 8.5 (8.4-10.2) mg/dL Magnesium 1.9 (1.6-2.3) mg/dL Total Bilirubin < 0.1 L (0.2-1.3) mg/dL AST 17 (14-36) IU/L ALT 14 (<35) IU/L Alkaline Phosphatase 30 L (38-126) U/L Total Creatine Kinase 66 (30-135) U/L CK-MB (CK-2) TNP CK-MB (CK-2) Rel Index TNP Troponin I < 0.012 (0.01-0.034) ng/mL Total Protein 6.6 (6.3-8.2) g/dL Albumin 3.8 (3.5-5.0) g/dL Globulin 2.8 (1.7-4.1) g/dL Albumin/Globulin Ratio 1.4 (1.0-2.8) Lipase 184 (23-300) U/L Procalcitonin (<0.5) ng/mL 03/08/22 03/08/22 Range/Units 22:11 22:11 WBC (4.5-11.0) X10^3/uL RBC (4.0-5.2) X10^6/uL Hgb (12.0-16.0) g/dL Hct (36-46) % MCV (80-100) fL MCH (26-34) PG MCHC (30-36) % RDW (11.6-14.8) % Plt Count (150-400) X10^3/uL Neut % (Auto) (50-75) % Lymph % (Auto) (25-40) % [place] % (Auto) (3-14) % Eos % (Auto) (2-4) % Baso % (Auto) (0-2) % Neut # (Auto) (5072-6556) /uL Lymph # (Auto) (6861-1265) /uL [place] # (Auto) (0-900) /uL Eos # (Auto) (0-450) /uL Baso # (Auto) (0-100) /uL D-Dimer 227 (<500) ng/ml Sodium (137-145) mmol/L Potassium (3.4-5.1) mmol/L Chloride (98-107) mmol/L Carbon Dioxide (22-32) mmol/L BUN (7-17) mg/dL Creatinine (0.52-1.04) mg/dL Estimated GFR (>60) mL/min BUN/Creatinine Ratio (6-22) Glucose (70-100) mg/dL Lactate (0.7-2.1) mmol/L Calcium (8.4-10.2) mg/dL Magnesium (1.6-2.3) mg/dL Total Bilirubin (0.2-1.3) mg/dL AST (14-36) IU/L ALT (<35) IU/L Alkaline Phosphatase (38-126) U/L Total Creatine Kinase (30-135) U/L CK-MB (CK-2) CK-MB (CK-2) Rel Index Troponin I (0.01-0.034) ng/mL Total Protein (6.3-8.2) g/dL Albumin (3.5-5.0) g/dL Globulin (1.7-4.1) g/dL Albumin/Globulin Ratio (1.0-2.8) Lipase (23-300) U/L Procalcitonin 0.05 (<0.5) ng/mL Point of Care Testing Test Results Negative Urine Dip Bedside Urine Glucose Negative Bedside Urine Bilirubin - Negative Bedside Urine Ketone - Negative Urine Specific [place] 1.010 Bedside Urine Occult Blood - Negative Bedside Urine pH 6.0 Bedside Urine Protein - Negative Bedside Urine Urobilinogen - Negative Bedside Urine Nitrite - Negative Bedside Urine Leukocytes - Negative Esterase Imaging Data CT scan - head: Radiologist's Impression: CT Scan Report Signed Patient: Jody Williamson MR#: [id number] : 1980 Acct:[id number] Age/Sex: 41 / F Date of Service: 03/09/22 Loc: ED Accession Number: [id number] ?? Procedure: CT head/brain wo con Ordering Provider: Mandy Dhillon D.O. PROCEDURE:? CT HEAD/BRAIN WO CON ? INDICATIONS:? syncope ? TECHNIQUE:? Noncontrast 4.5 mm thick angled axial sections acquired from the foramen magnum to the vertex, with coronal and sagittal reformats.? For radiation dose reduction, the following was used:? automated exposure control, adjustment of mA and/or kV according to patient size.? ? COMPARISON:? [facility], CT, CT HEAD/BRAIN WO CON, 07/14/2018, 22:00. ? FINDINGS:? Image quality:? Excellent.? ? CSF spaces:? Basal cisterns are patent.? No extra-axial fluid collections.? Ventricles are normal in size and shape.? ? Brain:? No intracranial hemorrhage, mass, or mass effect.? Sharp-white matter interface appears preserved.? ? Skull and face:? Calvarium and visualized facial bones are intact, without suspicious lesions.? ? Sinuses:? Visualized sinuses and mastoids are clear.? ? IMPRESSION:? ? 1. No acute intracranial abnormality.? ? ? Dictated by: Harpreet Torres M.D. on 03/09/2022 at 2:01 ? CT scan - chest: Radiologist's Impression: CT Scan Report Signed Patient: Jody Williamson MR#: [id number] : 1980 Acct:[id number] Age/Sex: 41 / F Date of Service: 03/09/22 Loc: ED Accession Number: [id number] ?? Procedure: CT angio chest abdomen pelvis Ordering Provider: Mandy Dhillon D.O. PROCEDURE:? CT ANGIO CHEST ABDOMEN PELVIS ? INDICATIONS:? hypotension and synope ? TECHNIQUE:? Precontrast 5 mm thick sections acquired from the lung apices to the iliac crests.? After the administration of intravenous contrast, 2.5 mm thick sections again acquired from the lung apices to the iliac crests.? Maximum intensity projection (MIP) oblique sagittal and coronal reformats were then acquired.? For radiation dose reduction, the following was used:? automated exposure control.? ? COMPARISON:? [facility], PELVIC COMPLETE, 01/14/2017, 8:43. ? FINDINGS:? Image quality:? Excellent.? ? AORTA:? Noncontrast images demonstrate no evidence of intramural hematoma.? The aorta is normal in caliber and contour without intimal flaps to suggest dissection.? There is conventional branching of the aortic arch.? The visualized great vessels are normal in caliber and appear patent.? The celiac, superior mesenteric, and inferior mesenteric arteries are patent.? There are single renal arteries bilaterally which also appear patent.? The common, external, and internal iliac arteries appear patent.? The common femoral and visualized proximal superficial femoral arteries appear patent. ? Lower Neck: No lymphadenopathy by size criteria. Thyroid:? Visualized thyroid demonstrates no discrete nodules. Axillae: No lymphadenopathy by size criteria. Chest Wall:? Unremarkable.? Bones: Visualized osseous structures demonstrate no suspicious lesions. ? Lungs and Airways:? No acute consolidation.? No suspicious pulmonary nodules. The trachea and central airways are patent. Pleura: No pneumothorax or pleural effusions.? ? Heart: Heart size is normal.? No pericardial effusion. Thoracic Vessels: The pulmonary arteries are normal in size.? Mediastinum and [place]: No lymphadenopathy by size criteria. Esophagus: No wall thickening. No hiatal hernia. ? ABDOMEN: Liver:? There is a small oval cyst in the right hepatic lobe which is too small to characterize. Gallbladder:? Within normal limits without calcified gallstones.? ? Biliary ducts:? No biliary ductal dilatation.? ? Pancreas:? Unremarkable.? ? Spleen:? Normal in size.? ? Adrenal Glands:? No adrenal nodules.? ? Kidneys and Ureters:? No hydronephrosis.? There are 3 nonobstructing stones within the right kidney, with the largest measuring up to 0.4 cm. ? ? Stomach and Bowel:? Stomach, small bowel loops, and colon are normal in caliber and wall thickness.? The appendix is normal in appearance.? Peritoneum:? No abnormal intraperitoneal fluid.? No free air.? ? Ventral Wall: ? No hernia.? Abdominal Nodes:? No retroperitoneal or mesenteric adenopathy by size criteria.? Vessels:? Aorta and inferior vena cava are normal in size.? ? PELVIS: Pelvic Organs:? An IUD is demonstrated within the? ? Bladder:? Unremarkable.? ? Pelvic Nodes: No enlarged lymph nodes.? Miscellaneous:? IUD appears in appropriate position within the uterus. ? ? ? Bones:? Visualized osseous structures demonstrate no suspicious focal lesions. ? IMPRESSION:? ? 1. No evidence of aortic aneurysm or dissection. ? 2. No acute airspace consolidation.? Dictated by: Harpreet Torres M.D. on 03/09/2022 at 1:53 ? ? Chest x-ray: Radiologist's Impression: [place] [id number] XRay Report Signed Patient: Jody Williamson MR#: [id number] : 1980 Acct:[id number] Age/Sex: 41 / F Date of Service: 03/08/22 Loc: ED Accession Number: [id number] ?? Procedure: XR chest 1V Ordering Provider: Mandy Dhillon D.O. PROCEDURE:? XR CHEST 1V ? INDICATIONS:? chest pain ? TECHNIQUE:? One view of the chest was acquired.? ? COMPARISON:? None. ? FINDINGS:? ? Surgical changes and devices:? None.? ? Lungs and pleura:? Lungs are clear.? No pleural effusions or pneumothorax.? ? Mediastinum:? Mediastinal contours appear normal.? Heart size is normal.? ? Bones and chest wall:? No suspicious bony lesions.? Overlying soft tissues appear unremarkable.? ? IMPRESSION:? ? 1.? No acute cardiopulmonary disease. ? ? ? Dictated by: Harpreet Torres M.D. on 03/08/2022 at 23:18 ?? ECG Data Interpretation: Normal sinus rhythm rate 63 [place] interval 198 QRS 96 QTC 403 T-wave inversion in lead 3 MDM Narrative Medical decision making narrative: Patient is persistently hypotensive despite IV fluids. Thought his have orthostasis secondary to blood pressure. D-dimer and COVID are negative. Troponin is negative. Patient has had 3 L of normal saline in remains hypotensive. She is awake alert and sitting up. She actually got up to use the restroom she still felt a little dizzy and lightheaded. Decision to do a CT angio which negative. She really has a map greater than 65. Talked with her about vasopressor. After 4 L of IV fluids patient's blood pressure finally be in sore eyes into the 90s and finally into the low 100s. Patient is asymptomatic. At this time she needs to stop taking her blood pressure medication. She never needed pressors central line was never placed. Entirely sure patient's persistent hypotension and ongoing etiology. It does not appear to be fractures she has no leukocytosis normal lactic acid. He has a very minimal elevation in her creatinine. He does not show any ruptured aneurysm or other cause 1st ongoing hypotension. She ambulated in the ED without any difficulty. Discharge Plan Departure Patient Disposition: Home Clinical Impression: Syncope due to orthostatic hypotension Instructions: DI for Orthostatic Hypotension Activity Restrictions/Additional Instructions: *You have been diagnosed with orthostatic hypotension with syncope *What to do: At this time he likely passed out due to the dehydration and blood pressure medication. Stop taking her blood pressure medicine be sure to drink fluids. Please monitor your blood pressure at home check once daily *Continue to take medications as directed STOP BLOOD PRESSURE MEDICATION *Follow up with your primary care provider in 2-3 days or call [phone] *Return to ER if you should have recurrent episode of passing out, chest dizziness lightheadedness palpitations or any new, worsening or concerning symptoms Referrals: Avelina Uribe MD [Primary Care Provider] -
[2022-03-08 22:47] LABS: Bilirubin Total < 0.1 mg/dL (0.2-1.3)
[2022-03-08 22:52] LABS: Troponin I < 0.012 ng/mL (0.01-0.034)
[2022-03-08 23:16] LABS: D Dimer 227 ng/ml (<500); Procalcitonin 0.05 ng/mL (<0.5)
[2022-03-09] VITALS (49 sets, daily range): BP systolic 79–104; BP diastolic 42–77; PULSE 54–79; RESP 13–26; O2SAT 93–99
--- NOTE | 2022-03-09 00:58 | DI.CT.S_ITS ---
PROCEDURE: CT ANGIO CHEST ABDOMEN PELVIS INDICATIONS: hypotension and synope TECHNIQUE: Precontrast 5 mm thick sections acquired from the lung apices to the iliac crests. After the administration of intravenous contrast, 2.5 mm thick sections again acquired from the lung apices to the iliac crests. Maximum intensity projection (MIP) oblique sagittal and coronal reformats were then acquired. For radiation dose reduction, the following was used: automated exposure control. COMPARISON: US, PELVIC COMPLETE, 01/14/2017, 8:43. FINDINGS: Image quality: Excellent. AORTA: Noncontrast images demonstrate no evidence of intramural hematoma. The aorta is normal in caliber and contour without intimal flaps to suggest dissection. There is conventional branching of the aortic arch. The visualized great vessels are normal in caliber and appear patent. The celiac, superior mesenteric, and inferior mesenteric arteries are patent. There are single renal arteries bilaterally which also appear patent. The common, external, and internal iliac arteries appear patent. The common femoral and visualized proximal superficial femoral arteries appear patent. Lower Neck: No lymphadenopathy by size criteria. Thyroid: Visualized thyroid demonstrates no discrete nodules. Axillae: No lymphadenopathy by size criteria. Chest Wall: Unremarkable. Bones: Visualized osseous structures demonstrate no suspicious lesions. Lungs and Airways: No acute consolidation. No suspicious pulmonary nodules. The trachea and central airways are patent. Pleura: No pneumothorax or pleural effusions. Heart: Heart size is normal. No pericardial effusion. Thoracic Vessels: The pulmonary arteries are normal in size. Mediastinum and Hortencia: No lymphadenopathy by size criteria. Esophagus: No wall thickening. No hiatal hernia. ABDOMEN: Liver: There is a small oval cyst in the right hepatic lobe which is too small to characterize. Gallbladder: Within normal limits without calcified gallstones. Biliary ducts: No biliary ductal dilatation. Pancreas: Unremarkable. Spleen: Normal in size. Adrenal Glands: No adrenal nodules. Kidneys and Ureters: No hydronephrosis. There are 3 nonobstructing stones within the right kidney, with the largest measuring up to 0.4 cm. Stomach and Bowel: Stomach, small bowel loops, and colon are normal in caliber and wall thickness. The appendix is normal in appearance. Peritoneum: No abnormal intraperitoneal fluid. No free air. Ventral Wall: No hernia. Abdominal Nodes: No retroperitoneal or mesenteric adenopathy by size criteria. Vessels: Aorta and inferior vena cava are normal in size. PELVIS: Pelvic Organs: An IUD is demonstrated within the Bladder: Unremarkable. Pelvic Nodes: No enlarged lymph nodes. Miscellaneous: IUD appears in appropriate position within the uterus. Bones: Visualized osseous structures demonstrate no suspicious focal lesions. IMPRESSION: 1. No evidence of aortic aneurysm or dissection. 2. No acute airspace consolidation. Dictated by: Harpreet Torres M.D. on 03/09/2022 at 1:53 Approved by: Harpreet Torres M.D. on 03/09/2022 at 1:59
--- NOTE | 2022-03-09 00:58 | DI.CT.S_ITS ---
PROCEDURE: CT HEAD/BRAIN WO CON INDICATIONS: syncope TECHNIQUE: Noncontrast 4.5 mm thick angled axial sections acquired from the foramen magnum to the vertex, with coronal and sagittal reformats. For radiation dose reduction, the following was used: automated exposure control, adjustment of mA and/or kV according to patient size. COMPARISON: [facility], CT, CT HEAD/BRAIN WO CON, 07/14/2018, 22:00. FINDINGS: Image quality: Excellent. CSF spaces: Basal cisterns are patent. No extra-axial fluid collections. Ventricles are normal in size and shape. Brain: No intracranial hemorrhage, mass, or mass effect. Sharp-white matter interface appears preserved. Skull and face: Calvarium and visualized facial bones are intact, without suspicious lesions. Sinuses: Visualized sinuses and mastoids are clear. IMPRESSION: 1. No acute intracranial abnormality. Dictated by: Harpreet Torres M.D. on 03/09/2022 at 2:01 Approved by: Harpreet Torres M.D. on 03/09/2022 at 2:02
[2022-03-09] MEDS: SODIUM CHLORIDE 0.9% 1,000 ML 250 ML IV (01:01)
[2022-03-09] MEDS: SODIUM CHLORIDE 0.9% 1,000 ML 1000 ML IV (01:01)
== END 2022-03-09 04:50 | disposition home or self-care (01) ==
PROVIDERS: Emergency Provider Emergency Medicine; Family Provider Family Medicine; PCP Family Medicine
DX: I95.1 Orthostatic hypotension (principal); R07.9 Chest pain, unspecified
CPT/HCPCS: 36415; 70450; 71045; 71275; 74174; 80053; 81003; 81025; 82550; 83605; 83690; 83735; 84145; 84484; 85025; 85379; 93005; 96360; 96361; 99284; Q9967

== ENCOUNTER → 2024-03-30 09:40 | Outpatient (CLI) | payer OTHER, SELFPAY ==
[2024-03-30 10:25] LABS: Add Manual Diff / Slide Review NO; Basophils Absolute Auto 0 /uL (0-100); Basophils Percent Auto 0.6 % (0-2); Eosinophils Absolute Auto 100 /uL (0-450); Eosinophils Percent Auto 1.5 % (2-4); Hematocrit 40.9 % (36-46); Hemoglobin 13.8 g/dL (12.0-16.0); Lymphocytes Absolute Auto 1700 /uL (1100-4500); Lymphocytes Percent Auto 29.6 % (25-40); Mean Corpuscular HGB Conc 33.7 % (30-36); Monocytes Absolute Auto 300 /uL (0-900); Monocytes Percent Auto 5.1 % (3-14); Neutrophils Absolute Auto 3600 /uL (1500-7000); Neutrophils Percent Auto 63.2 % (50-75); Platelet Count 245 X10^3/uL (150-400); White Blood Cell Count 5.7 X10^3/uL (4.5-11.0)
[2024-03-30 12:00] LABS: Alanine Aminotransferase 14 IU/L (<35); Albumin 4.1 g/dL (3.5-5.0); Albumin Globulin Ratio 1.6 (1.0-2.8); Alkaline Phosphatase 29 U/L (38-126); Aspartate Aminotransferase 17 IU/L (14-36); BUN Creatinine Ratio 16.9 (6-22); Bilirubin Total 0.5 mg/dL (0.2-1.3); Blood Urea Nitrogen 14 mg/dL (7-17); Calcium 9.2 mg/dL (8.4-10.2); Carbon Dioxide 24 mmol/L (22-32); Chloride 105 mmol/L (98-107); Cholesterol 169 mg/dL (140-199); Estimated Glomerular Filt Rate > 60 mL/min (>60); Globulin 2.6 g/dL (1.7-4.1); Glucose 103 mg/dL (70-100); HDL Cholesterol 58 mg/dL (40-60); HEMOLYSIS < 15 (0-50); LDL Cholesterol Calculated 101 mg/dL (<100); Potassium 4.7 mmol/L (3.4-5.1); Sodium 136 mmol/L (137-145); Total Protein 6.7 g/dL (6.3-8.2); Triglycerides 52 mg/dL (35-150)
[2024-03-30 12:19] LABS: Free T3, Triiodothyronine Free 3.47 pg/mL (2.77-5.27); Free T4, Direct Thyroxine 1.25 ng/dL (0.78-2.19)
[2024-03-30 12:32] LABS: Thyroid Stimulating Hormone 0.828 uIU/mL (0.47-4.68)
[2024-03-30 12:36] LABS: Ferritin 25 ng/mL (6-137)
[2024-03-31 16:08] LABS: Thyroid Peroxidase Antibodies 15 IU/mL (0-34)
== END ==
PROVIDERS: Family Provider Family Medicine; PCP Family Medicine; Referring Provider Naturopath; Visit Provider Naturopath
DX: Z00.00 Encounter for general adult medical examination without abnormal findings (principal); I10 Essential (primary) hypertension; R53.83 Other fatigue
CPT/HCPCS: 36415; 80053; 80061; 82728; 84439; 84443; 84481; 85025; 86376